=== PATIENT | male | born 1975 ===

== ENCOUNTER 2021-09-08 16:44 | Emergency (ER) | payer OTHER ==
[~2021-09-08] VITALS: Ht 182.9 cm; Wt 113.9 kg
[~2021-09-08 16:44] MED LIST: KETO10TA2 PO; ORPH100T PO
[2021-09-08] MEDS ORDERED: COZAAR50 MG PO (16:52)
[2021-09-08] MEDS ORDERED: GLUMETZA500 MG PO (16:52)
[2021-09-08] MEDS ORDERED: KETO10TA2 PO (19:27)
[2021-09-08] MEDS ORDERED: ORPHENADRINE C100 MG PO (19:27)
== END 2021-09-08 19:41 | disposition home or self-care (01) ==
LOC: ER 16:44
DX: S40.011A Contusion of right shoulder, initial encounter (principal); S43.421A Sprain of right rotator cuff capsule, initial encounter; W18.30XA Fall on same level, unspecified, initial encounter; Y93.9 Activity, unspecified; Y92.9 Unspecified place or not applicable